=== PATIENT | female | born 1960 | race African-American/Black ===

== ENCOUNTER 2016-09-18 03:37 | Emergency (ER) | payer BC ==
[2016-09-18 03:14] LABS: BASOPHILS 0.3 %; BASOPHILS ABSOLUTE 0.04 10/3/uL (0.0-0.16); EOSINOPHILS 3.3 %; EOSINOPHILS ABSOLUTE 0.38 10/3/uL (0.0-0.53); HEMATOCRIT 38.6 % (36.0-48.0); HEMOGLOBIN 12.3 g/dL (12.0-16.0); IMMATURE GRANULOCYTES 0.4 %; LYMPHOCYTES 48.4 %; LYMPHOCYTES ABSOLUTE 5.62 10/3/uL (0.67-4.30); MEAN CORPUS HGB CONC 31.9 g/dL (32.0-36.0); MEAN CORPUSCULAR HEMOGLOB 29.5 pg (26.0-34.0); NEUTROPHILS 41.6 %; NEUTROPHILS ABSOLUTE 4.81 10/3/uL (2.02-8.40); PLATELET COUNT 263 10/3/uL (150-400); RBC DISTRIBUTION WIDTH 13.5 % (12.0-16.0); RED CELL COUNT 4.17 10/6/uL (4.0-5.6)
[2016-09-18 03:15] LABS: ER CBC TAT 0 Hrs 08 Mins; IMMATURE GRANULOCYTES ABSOLUTE 0.05 10/3/uL (0.0-0.11); MANUAL DIFF NO %; MEAN CORPUSCULAR VOLUME 92.6 fL (80-100); WHITE BLOOD CELLS 11.6 10/3/uL (4.5-10.5)
[2016-09-18 03:29] LABS: A/G RATIO 0.9 (0.7-1.9); ALBUMIN 3.5 G/DL (3.5-5.0); ALKALINE PHOSPHATASE 76 U/L (45-117); BUN (BLOOD UREA NITROGEN) 10 MG/DL (6-23); CALCIUM, SERUM 8.5 MG/DL (8.5-10.4); CHLORIDE, SERUM 106 MMOL/L (96-112); CO2 (CARBON DIOXIDE) 31 MMOL/L (24-34); CREATININE 0.75 MG/DL (0.55-1.02); GFR AFRICAN AMERICAN 105 ML/MIN (>=60); GFR NON AFRICAN AMERICAN 90 ML/MIN (>=60); GLOBULIN 4.1 G/DL (2.5-4.1); GLUCOSE, SERUM 131 MG/DL (60-99); POTASSIUM, SERUM 3.8 MMOL/L (3.5-5.3); SGOT(AST) 14 U/L (5-40); SGPT(ALT) 20 U/L (5-65); SODIUM, SERUM 145 MMOL/L (135-148); TOTAL BILIRUBIN 0.2 MG/DL (0-1.2); TOTAL PROTEIN 7.6 G/DL (6.0-8.5)
[2016-09-18 03:35] LABS: BAND NEUTROPHILS 3 %; BASOPHILS 1 %; BASOPHILS ABSOLUTE (CALC) 0.12 10/3/uL (0.0-0.16); EOSINOPHILS 3 %; EOSINOPHILS ABSOLUTE (CALC) 0.35 10/3/uL (0.0-0.53); ER DIFF TAT 0 Hrs 28 Mins; IMMATURE GRANS ABSOLUTE (CALC) 0.35 10/3/uL (0.0-0.11); LYMPHOCYTES 39 %; LYMPHOCYTES ABSOLUTE (CALC) 4.52 10/3/uL (0.67-4.30); METAMYELOCYTES 2 %; MONOCYTES 1 %; MONOCYTES ABSOLUTE (CALC) 0.12 10/3/uL (0.21-1.20); MYELOCYTES 1 %; NEUTROPHILS ABSOLUTE (CALC) 6.15 10/3/uL (2.02-8.40); PLATELET ESTIMATE ADQ (ADEQUATE); RBC MORPHOLOGY NORM (NORMAL); SEGMENTED NEUTROPHIL (0) 50 %; TOTAL NUCLEATED CELLS 100
[~2016-09-18 03:37] MED LIST: BENICAR20 PO; HYDROCHLOROT25 MG PO; NORV5 PO
== END 2016-09-18 05:07 | disposition home or self-care (01) ==
LOC: ER 03:37
PROVIDERS: Hospitalist
DX: R06.00 Dyspnea, unspecified (principal); E66.9 Obesity, unspecified; I10 Essential (primary) hypertension; Z79.899 Other long term (current) drug therapy
CPT/HCPCS: 71010; 80053; 85025; 87040; 87804; 93005; 99285